=== PATIENT | female | born 1950 | race Caucasian/White ===

== ENCOUNTER 2018-05-03 07:01 | Observation (INO) | payer MEDICARE ==
--- NOTE | 2018-04-30 10:11 | Diagnostic Imaging Report ---
PROCEDURE: X-RAY CHEST, TWO VIEWS COMPARISON: None. INDICATIONS: PREOPERATIVE CHEST XRAY FOR KNEE SURGERY FINDINGS: LUNGS: No consolidations or edema. Linear scarring in the left midlung zone. PLEURA: No effusions or pneumothorax. HEART & MEDIASTINUM: The heart is within normal size-limits. BONES & SOFT TISSUES: Degenerative changes of the spine. CONCLUSION: No acute thoracic abnormality. Daren Fuentes D.O. Dictated by: Daren Fuentes D.O. on 04/30/2018 at 10:20 Electronically approved by: Daren Fuentes D.O. on 04/30/2018 at 10:20
[2018-04-30 10:17] LABS: BASOPHILS # (AUTO) 0.1 (0.0-0.1); BASOPHILS % 1.3 % (0.0-1.0); EOSINOPHILS # (AUTO) 0.2 (0.0-0.4); EOSINOPHILS % 3.5 % (0.0-6.0); HEMATOCRIT 38.9 % (34.2-44.1); HEMOGLOBIN 12.5 g/dL (12.0-16.0); LYMPHOCYTES # (AUTO) 1.7 (1.0-3.2); LYMPHOCYTES % 30.3 % (18.0-39.1); MEAN CORPUSCULAR HEMOGLOBIN 30.3 pg (28-32); MEAN CORPUSCULAR HGB CONC 32.1 g/dL (31-35); MEAN CORPUSCULAR VOLUME 94.4 fL (81-99); MONOCYTES # (AUTO) 0.5 (0.2-0.8); MONOCYTES % 9.5 % (4.4-11.3); PLATELET COUNT 317 x10e3/uL (140-360); RED BLOOD COUNT 4.12 x10e6/uL (3.6-5.1); RED CELL DISTRIBUTION WIDTH 13.2 % (11.7-14.4)
[2018-04-30 10:44] LABS: ANION GAP 15.2 mmol/L (8-16); CALCIUM 8.9 mg/dL (8.4-10.2); CREATININE, SERUM 1.16 mg/dL (0.57-1.11); POTASSIUM 4.2 mmol/L (3.5-5.1)
[~2018-05-03] VITALS: Ht 177.8 cm; Wt 117.9 kg
[~2018-05-03 07:01] MED LIST: ALLOPURINOL100 MG PO; AMLODIPINE BESYL5 MG PO; CARVEDILOL12.5 MG PO; FISH OIL 1,0001 EAC2 PO; LOSARTAN-HCTZ1 EAC1 PO; MAGNESIUM OXID400 MG PO; ROPIVACAINE 246.25 MG, EPINEPHRINE HCL 1:1000 0.5 MG, CLONIDINE HCL 0.08 MG, KETOROLAC ... IV ONE
--- OUTSIDE RECORDS SUMMARY | 2018-05-03 07:02 | XMS REPORT ---
Author Author [facility] Organization [facility] Address Unknown Phone Unavailable Care Team Providers Care Restaurant Line Server Name Role Phone LISET GRANADOS Unavailable Unavailable Payers Payer Name Policy Type Policy Number Effective Date Expiration Date Problems This patient has no known problems. Allergies, Adverse Reactions, Alerts This patient has no known allergies or adverse reactions. Medications This patient has no known medications. Results Test Description Test Time Test Comments Text Results Atomic Results Result Comments CHEST 2 VIEWS 2018-04-30 10:20:00 [place] [address] Patient Name: SHANNON CHAVEZ MR #: [id number] : 1950 Age/Sex: 68/F Req #: [id number] [facility] Physician: Ordered by: LISET GRANADOS MD Report #: [id number] Location: OR Room/Bed: Procedure: [id number] DX/CHEST 2 VIEWS Exam Date: 04/30/18 Exam Time: 0950 REPORT STATUS: Signed PROCEDURE: X-RAY CHEST, TWO VIEWS COMPARISON: None. INDICATIONS: PREOPERATIVE CHEST XRAY FOR KNEE SURGERY FINDINGS: LUNGS: No consolidations or edema. Linear scarring in the left midlung zone. PLEURA: No effusions or pneumothorax. HEART MEDIASTINUM: The heart is within normal size-limits. BONES SOFT TISSUES: Degenerative changes of the spine. CONCLUSION: No acute thoracic abnormality. Mary Carmen Fuentes D.O. Dictated by: Mary Carmen Fuentes D.O. on 04/30/2018 at 10:20 Electronically approved by: Mary Carmen Fuentes D.O. on 04/30/2018 at 10:20 Dictated By: MARY CARMEN FUENTES DO 1020 Transcribed By: TIANA on 04/30/18 1020 COPY TO: LISET GRANADOS MD
[2018-05-03] MEDS ORDERED: CELECOXIB 200 MG CAP ONE (07:16)
[2018-05-03] MEDS ORDERED: GABAPENTIN 300 MG CAP ONE (07:17)
[2018-05-03] MEDS ORDERED: DEXAMETHASONE SOD PHOS 10 MG/1 ML VIAL ONE (07:17)
[2018-05-03] MEDS ORDERED: CEFAZOLIN SOD 2 GM/D5W 50ML 50 ML IV ONE (07:18)
[2018-05-03] MEDS ORDERED: TRANEXAMIC ACID 1,000 MG/10 ML ML ONE (08:42)
[2018-05-03] MEDS ORDERED: BACITRACIN 50,000 UNIT VIAL ONE (08:42)
[2018-05-03] MEDS ORDERED: SODIUM CHLORIDE 0.9% 1000ML 1,000 ML IV SCH (10:58)
[2018-05-03] MEDS ORDERED: HYDROCODONE/APAP 5MG-325MG TAB PO PRN (11:00)
[2018-05-03] MEDS ORDERED: ONDANSETRON HCL INJ 2 MG/ML VIAL IV PRN (11:00)
[2018-05-03] MEDS ORDERED: ZOLPIDEM TARTRATE 5 MG TAB PO PRN (11:00)
[2018-05-03] MEDS ORDERED: DOCUSATE SODIUM 100 MG CAP PO PRN (11:00)
[2018-05-03] MEDS ORDERED: KETOROLAC TROMETHAMINE 30 MG/ML VIAL IV PRN (11:00)
[2018-05-03] MEDS ORDERED: DIPHENHYDRAMINE HCL INJ 50 MG/ML VIAL IM/IV PRN (11:00)
[2018-05-03] MEDS ORDERED: ACETAMINOPHEN 650 MG SUPP PR PRN (11:00)
[2018-05-03] MEDS ORDERED: PROMETHAZINE HCL (IM) 25 MG/ML VIAL INJ PRN (11:00)
[2018-05-03] MEDS ORDERED: FENTANYL CITRATE/PF 100MCG/2 ML INJ ONE ×3 (11:22→18:56)
[2018-05-03] MEDS ORDERED: MORPHINE SULFATE 2 MG/ML SYR ONE ×2 (13:09→14:48)
[2018-05-03] MEDS ORDERED: CEFAZOLIN SOD 1 GM/D5W 50ML 50 ML IV SCH (14:00)
[2018-05-03] MEDS ORDERED: CEFAZOLIN SOD 1 GM VIAL IV SCH (14:00)
--- NOTE | 2018-05-03 14:30 | Diagnostic Imaging Report ---
Exam: Left knee 2 views History: Knee pain Comparison: None. Findings: No acute fracture. Left total knee arthroplasty. Hardware intact. Postsurgical change. Impression: Intact left total knee arthroplasty. No complication. Signed by: Dr. Brennen Mc M.D. on 05/03/2018 2:26 PM
--- NOTE | 2018-05-03 14:55 | Operative Report ---
DATE OF PROCEDURE: May 03, 2018 PREOPERATIVE DIAGNOSIS: Osteoarthritis, left knee. POSTOPERATIVE DIAGNOSIS: Osteoarthritis, left knee. PROCEDURE: Left total knee arthroplasty. INDICATIONS: The patient is a 68-year-old woman who has end-stage osteoarthritis of her left knee. She has failed conservative management and would like to proceed with a left total knee replacement. The risks and benefits have been discussed. She states she understands and wishes to proceed. DESCRIPTION OF PROCEDURE: The patient was brought to the operating room and placed under general anesthetic. She received a regional block, prophylactic antibiotics and tranexamic acid in the holding area. Her left lower extremity was prepped and draped in a sterile manner. A preoperative time out was performed. The extremity was exsanguinated, and a proximal tourniquet was inflated to 350 mmHg. An anterior approach with a medial parapatellar arthrotomy was performed. The knee was brought up into flexion with the patella everted. The cruciate ligaments were sacrificed. A Hodges and Nephew posterior stabilized Legion knee system was used throughout the case. An extramedullary cutting guide was used to resect the proximal tibia. The tibial baseplate was noted to be a size number 6. The central fin punch was impacted, and attention was directed towards the distal femur. An intramedullary cutting guide was used to resect the distal femur in 6 degrees of valgus and rotation referencing off of a combination of landmarks including [place] line, the posterior condyles and the epicondylar axis. The femoral component was a size number 7. Anterior, posterior and notch cuts were made. Trial reductions were performed. A 9-mm posterior stabilized knee system provided appropriate soft-tissue balancing in full extension and 90 degrees of flexion. The patella was resurfaced with a 32-mm x 7.5-mm patellar button. The thickness was checked before and after and was right at 24 mm. Patellar tracking was noted to be concentric. The trial implants were then removed. A 100 mL premixed pericapsular HERBER injection was placed into the surrounding soft tissue. The knee was thoroughly irrigated with a shower-tip pulsatile lavage. The components were then cemented into place using a single mix of Palacos cement preloaded with antibiotics. Care was taken to remove extravasated cement. The wound was further irrigated while the cement cured. The arthrotomy was then closed with interrupted #1 Ethibond. The knee was put through flexion and extension to ensure a secure closure. The skin was closed with subcuticular Vicryl and jess. A sterile Aquacel bandage was applied. The patient was extubated and transported to the recovery room in stable condition. Blood loss was minimal, and all needle and sponge counts were correct. Job#: [id number]
[2018-05-03 15:06] VITALS: BP 138/78
[2018-05-03] MEDS ORDERED: CELECOXIB 100 MG CAP PO SCH (17:00)
[2018-05-03] MEDS: CEFAZOLIN SOD 1 GM VIAL IV SCH (17:10)
[2018-05-03 17:37] VITALS: BP 142/77
[2018-05-03] MEDS: ACETAMINOPHEN 1000 MG/100 ML IV SCH (18:00)
[2018-05-03] MEDS: CELECOXIB 200 MG CAP PO SCH (18:00)
[2018-05-03] MEDS: ASPIRIN 325 MG TAB PO SCH (18:00)
[2018-05-03] MEDS: HYDROCODONE/APAP 7.5MG-325MG 1 EA TAB PO PRN ×2 (18:44→22:38)
[2018-05-03] MEDS ORDERED: MIDAZOLAM HCL 2 MG/2 ML VIAL ONE (18:56)
[2018-05-03] MEDS ORDERED: BUPIVACAINE HCL 0.5% INJ 30 ML VIAL INJ ONE (19:20)
[2018-05-03] MEDS ORDERED: EPINEPHRINE HCL INJ 1 MG/ML AMP ONE (19:20)
[2018-05-03 20:00] VITALS: BP 137/69
[2018-05-03 20:05] VITALS: BP 137/69
[2018-05-04] VITALS: BP 135/62
[2018-05-04] MEDS: ACETAMINOPHEN 1000 MG/100 ML IV SCH ×2 (00:34→05:49)
[2018-05-04] MEDS: CEFAZOLIN SOD 1 GM VIAL IV SCH ×2 (00:35→09:24)
[2018-05-04 04:00] VITALS: BP 124/68
[2018-05-04] MEDS: HYDROCODONE/APAP 7.5MG-325MG 1 EA TAB PO PRN (04:52)
[2018-05-04 05:08] LABS: HEMATOCRIT 32.9 % (34.2-44.1); HEMOGLOBIN 10.8 g/dL (12.0-16.0)
--- NOTE | 2018-05-04 06:12 | Consultation ---
AUDIO CUTTING IN AND OUT IN MULTIPLE PORTIONS OF THE REPORT DATE OF CONSULTATION: REASON FOR CONSULTATION: Medical management. HISTORY OF PRESENT ILLNESS: This patient is a 68-year-old, status post left total knee arthroplasty, who is doing well postoperatively with minimal pain. Otherwise, denies any fever, chills, , headaches, shortness of breath, dizziness on review of systems. PAST MEDICAL HISTORY: Hypertension, gout. MEDICATIONS: See MAR. ALLERGIES: SOCIAL HISTORY: Nonsmoker, nondrinker. FAMILY HISTORY: Noncontributory. PHYSICAL EXAMINATION VITALS: 96.3, pulse 67, blood pressure 124/68, saturating 99%. GENERAL: No apparent distress. NECK: Supple. CARDIOVASCULAR: Regular rate and rhythm. LUNGS: Clear to auscultation bilaterally. ABDOMEN: Good bowel sounds. Soft, nontender. EXTREMITIES: No clubbing, cyanosis. NEUROLOGIC: Nonfocal. ASSESSMENT AND PLAN 1. Anemia. Check a complete blood count. 2. Left knee pain. Continue with physical therapy. 3. Hypertension. Continue with home medications. 4. Gout. Continue with the home medications. Please see hospital chart for full details. Job#: [id number] CQ
[2018-05-04] MEDS ORDERED: AMLODIPINE BESYLATE 5 MG TAB PO SCH (09:00)
[2018-05-04] MEDS ORDERED: MAGNESIUM OXIDE 400 MG TAB PO SCH (09:00)
[2018-05-04] MEDS ORDERED: NON-FORMULARY MEDICATION (Omega-3 Fatty Acids/Fish Oil (Fish Oil 1,000 Mg Capsule) 1 CAP) PO SCH (09:00)
[2018-05-04] MEDS ORDERED: FISH OIL PO SCH (09:00)
[2018-05-04] MEDS ORDERED: LOSARTAN POTASSIUM 100 MG TAB PO SCH (09:00)
[2018-05-04] MEDS ORDERED: CARVEDILOL 12.5 MG TAB PO SCH (09:00)
[2018-05-04] MEDS ORDERED: HYDROCHLOROTHIAZIDE 25 MG TAB PO SCH (09:00)
[2018-05-04] MEDS ORDERED: NON-FORMULARY MEDICATION (Losartan/Hydrochlorothiazide (Losartan-Hctz 100-25 Mg Tab) 1 TAB PO SCH (09:00)
[2018-05-04] MEDS ORDERED: ALLOPURINOL 100 MG TAB PO SCH (09:00)
[2018-05-04 09:24] VITALS: BP 128/59
[2018-05-04] MEDS: ASPIRIN 325 MG TAB PO SCH (09:24)
[2018-05-04] MEDS: CELECOXIB 200 MG CAP PO SCH (09:24)
[2018-05-04 10:53] VITALS: BP 128/59
[2018-05-04] MEDS ORDERED: ACETAMINOPHEN 1000 MG/100 ML IV PRN (11:00)
[2018-05-04 14:01] VITALS: BP 132/66
[2018-05-04] MEDS ORDERED: NORCO 7.5-3251 EACH PO (15:39)
== END 2018-05-04 16:04 | disposition home or self-care (01) ==
LOC: OR 07:01 → PACU V 11:01 → MED/SURG 15:13
PROVIDERS: ADMIT Specialist; ATTEND Specialist
DX: M17.12 Unilateral primary osteoarthritis, left knee (principal); I10 Essential (primary) hypertension; D64.9 Anemia, unspecified; M10.9 Gout, unspecified; Z01.810 Encounter for preprocedural cardiovascular examination; Z01.812 Encounter for preprocedural laboratory examination; Z01.811 Encounter for preprocedural respiratory examination; Z88.1 Allergy status to other antibiotic agents; Z88.2 Allergy status to sulfonamides; Z88.8 Allergy status to other drugs, medicaments and biological substances
CPT/HCPCS: 27447; 36415 ×2; 71046; 73560; 80048; 85014; 85018; 85025; 86850; 86900; 86920; 93005; 97110; 97116 ×2; 97161; 97530; C1713; G0378 ×2; G8978; G8979; J0131 ×2; J0171; J0690 ×3; J1100; J1885 ×2; J2250; J2270; J2405; J2795; J7030